=== PATIENT | female | born 1950 | race Caucasian/White ===

== ENCOUNTER 2017-08-28 13:01 | Day surgery (SDC) | payer MEDICARE, BC ==
[~2017-08-28 13:01] MED LIST: CALA120T PO; CALC600T34 PO; CLOR1TAB21 PO; FLUTI44I INH; FORTEO IM; FURO1TAB93 PO; IPRA17I INH; IRONTAB5; LEXA10TA PO; LORT5TAB PO; LYRI50CA2 PO; PRED5 PO; PROM25SU8 PO; PROT40TA PO; SUCR1TAB6 PO; THEO300T11 PO; TRAM50 PO; TRIA3AER; VENTAER INH; Z.0.OXYGEN INH
[2017-08-28 14:05] VITALS: BP 145/80; PULSE 72; RESP 20; TEMP 98.2; O2SAT 93
--- NOTE | 2017-08-28 14:14 | RADRPT ---
EXAM DATE/TIME: 08/28/2017 13:24 [place] COMPARISON: No previous studies available for comparison. INDICATIONS : Right thyroid nodule. MEDICAL HISTORY : Hypercholesterolemia. Hypertension. Asthma. GERD. Diabetes. SURGICAL HISTORY : Hysterectomy. Gastric bypass. ENCOUNTER: Initial ACUITY: > 1 yr PAIN SCORE: 1/10 LOCATION: Right thyroid. ORGAN: Right thyroid lobe SPECIMENS: Three fine needle aspirate(s) submitted for pathologic evaluation. DEVICE: 25 gauge needle Post procedure scanning reveals no hematoma or other complication. The possibility does exist that the tissue obtained will be non-diagnostic. If the sample is non-radha gnostic a repeat biopsy or surgical biopsy may need to be performed. TECHNIQUE: 1. Ultrasound guidance for needle biopsy. 2. Needle biopsy. The risks, benefits and alternatives to the procedure were explained and verbal and written consent w as obtained. The site was prepped in sterile fashion. Full sterile technique was used, including ca p, mask, sterile gloves and gown and a large sterile sheet. Hand hygiene and 2% chlorhexidine and/or betadine/alcohol prep was utilized per protocol for cutaneous antisepsis. The skin and subcutaneous tissues were infiltrated with local anesthetic solution. Sterile gel and sterile probe cover were u tilized for ultrasound guidance. With the patient on the ultrasound table, images were obtained. A needle was advanced into the identified target and the number of specimens as above obtained and perez bmitted for pathologic evaluation. The patient tolerated the procedure well and left the ultrasound suite in stable condition. CONCLUSION: Uncomplicated ultrasound guided needle biopsy. Blake Vargas MD on August 28, 2017 at 14:12 Board Certified Radiologist. This report was verified electronically.
[2017-08-28 14:20] VITALS: BP 123/76; PULSE 73; RESP 18; O2SAT 92
[2017-08-28] MEDS ORDERED: LIDOCAINE HCL 1% 20 ML VIAL ONE (14:25)
== END 2017-08-28 14:49 | disposition home or self-care (01) ==
LOC: HRIP 13:01 → HRAD 13:01
PROVIDERS: ATTEND Internal Medicine Hematology
DX: E04.1 Nontoxic single thyroid nodule (principal); E11.9 Type 2 diabetes mellitus without complications; E78.00 Pure hypercholesterolemia, unspecified; I10 Essential (primary) hypertension; J45.909 Unspecified asthma, uncomplicated; K21.9 Gastro-esophageal reflux disease without esophagitis; Z98.84 Bariatric surgery status
CPT/HCPCS: 10022; 76942; 88172; 88173